=== PATIENT | female | born 1990 | race American Indian/Alaskan Native ===

== ENCOUNTER → 2021-05-01 | Outpatient (CLI) | payer OTHER ==
[~2021-05-01] MED LIST: METHACHOLINE KIT (J7674) INH ONE
--- NOTE | 2021-05-01 09:49 | PFTRPT ---
Height: 62.00 Inches Weight: 145.00 Lbs BSA: 1.67 Diagnosis: R06.02 DATE: 05/01/2021 ORDERED BY: Kallie Ring NP QUALITY: Study of excellent technical quality. PROCEDURE: Under protocol, methacholine was administered. At a dose of 25 mg or 188.875 CDUs, a 28% decline in the FEV1 was noted. PC of 11.24 is in the indeterminate range. Flow rates returned to better than baseline post bronchodilator administration. IMPRESSION: Indeterminate methacholine challenge. Please correlate clinically. MTDD
== END ==
LOC: M CARPUL 08:48
PROVIDERS: ATTEND Nurse Practitioner Adult Health
DX: R06.02 Shortness of breath (principal)

== ENCOUNTER 2022-03-08 10:07 | Day surgery (SDC) | payer OTHER ==
[~2022-03-08] VITALS: Ht 160 cm; Wt 69.9 kg
[~2022-03-08 10:07] MED LIST changes: +ADV250INH INH; +BIRTH CONTROL PO; +IBUP-1114 PO; -METHACHOLINE KIT (J7674) INH ONE; +PROAAER10 INH; +ceFAZolin SOD 2 GM in IV 1 EA IV ONE
[2022-03-08] MEDS ORDERED: propofoL 200 MG/20 ML VIAL As Ordered ONE (10:18)
[2022-03-08] MEDS ORDERED: MIDAZOLAM INJ 2MG/2ML VIAL (J2250 PER 1MG) As Ordered ONE (10:18)
[2022-03-08] MEDS ORDERED: dexameTHASONE 4 MG/ML 1ML VIAL (J1100 PER 1MG) As Ordered ONE ×2 (10:18→10:19)
[2022-03-08] MEDS ORDERED: fentaNYL 100 MCG/2 ML INJECTION As Ordered ONE ×2 (10:18→16:31)
[2022-03-08] MEDS ORDERED: ONDANSETRON 4MG 2ML VIAL As Ordered ONE (10:19)
[2022-03-08] MEDS ORDERED: ROPIvacaine 0.5% 30ML INJECTION (J2795 PER 1MG) As Ordered ONE (11:01)
[2022-03-08] MEDS ORDERED: EPINEPHrine 1MG/ML INJ 30ML MD-VIAL As Ordered ONE (11:01)
[2022-03-08] MEDS ORDERED: LR 1,000 ML IV SCH ×2 (11:55→17:10)
[2022-03-08] MEDS ORDERED: EPINEPHrine INJ 1 MG/ML 1ML AMP PN ONE (12:55)
[2022-03-08] MEDS ORDERED: ROPIvacaine 0.5% 30ML INJECTION (J2795 PER 1MG) PN ONE (12:55)
[2022-03-08] MEDS ORDERED: LIDOCAINE 1% SDV 5ML VIAL PN ONE (12:55)
[2022-03-08] MEDS: fentaNYL 100 MCG/2 ML INJECTION IV PRN ×2 (13:09→13:11)
[2022-03-08] MEDS: MIDAZOLAM INJ 2MG/2ML VIAL (J2250 PER 1MG) IV PRN (13:09)
[2022-03-08] MEDS ORDERED: LIDOCAINE 2% INJ 100 MG/5 ML SYRINGE As Ordered ONE (13:59)
[2022-03-08] MEDS ORDERED: TRANEXAMIC ACID 100 MG/ML 10ML VIAL As Ordered ONE (14:00)
[2022-03-08] MEDS ORDERED: VANCOMYCIN 1000MG/20ML VIAL As Ordered ONE (16:43)
[2022-03-08] MEDS ORDERED: ACETAMINOPHEN 1000MG 100ML IV BTL (OFIRMEV) (J0131 PER 10MG) As Ordered ONE (16:48)
[2022-03-08] MEDS ORDERED: oxyCODONE 5MG TAB PO PRN (17:10)
[2022-03-08] MEDS ORDERED: MORPHINE 2 MG/ML 1ML VIAL IV PRN (17:10)
[2022-03-08] MEDS ORDERED: fentaNYL 100 MCG/2 ML INJECTION IV PRN (17:10)
[2022-03-08] MEDS ORDERED: ONDANSETRON 4MG 2ML VIAL IV PRN (17:10)
[2022-03-08] MEDS ORDERED: diphenhydrAMINE 50MG/ML VIAL (J1200) As Ordered ONE (17:30)
[2022-03-08] MEDS ORDERED: diphenhydrAMINE 50MG/ML VIAL (J1200) IV ONE (17:35)
[2022-03-08 18:15] VITALS: BP 131/69
[2022-03-08] MEDS ORDERED: ESMOLOL INJ 100MG/10ML VIAL As Ordered ONE (18:36)
[2022-03-08] MEDS ORDERED: VECURONIUM BROMIDE 10MG VIAL As Ordered ONE (18:54)
== END 2022-03-08 18:34 | disposition home or self-care (01) ==
LOC: M SDC 10:07
PROVIDERS: ATTEND Orthopaedic Surgery
DX: M23.221 Derangement of posterior horn of medial meniscus due to old tear or injury, right knee (principal); M94.261 Chondromalacia, right knee; J45.909 Unspecified asthma, uncomplicated; Z79.51 Long term (current) use of inhaled steroids; Z79.899 Other long term (current) drug therapy; Z87.891 Personal history of nicotine dependence
CPT/HCPCS: 29868; 29881; 64447; 87428; C1713; C1762; J0131; J0171; J0690; J1100; J1200; J2250; J2405; J2795; J3010; J3370

== ENCOUNTER 2022-04-29 11:15 | Day surgery (SDC) | payer OTHER ==
[~2022-04-29] VITALS: Ht 160 cm; Wt 70.2 kg
[~2022-04-29 11:15] MED LIST changes: +NS 1,000 ML IV ONE; -ceFAZolin SOD 2 GM in IV 1 EA IV ONE
[2022-04-29] MEDS ORDERED: fentaNYL 100 MCG/2 ML INJECTION As Ordered ONE (13:12)
[2022-04-29] MEDS ORDERED: LIDOCAINE 2% 100MG/5ML SDV (FOR ANES.) As Ordered ONE (13:12)
[2022-04-29] MEDS ORDERED: propofoL 500 MG/50 ML VIAL As Ordered ONE (13:13)
[2022-04-29 13:59] VITALS: BP 112/69
== END 2022-04-29 14:12 | disposition home or self-care (01) ==
LOC: M OPP 11:15
PROVIDERS: ATTEND Internal Medicine Gastroenterology
DX: K58.1 Irritable bowel syndrome with constipation (principal); R12 Heartburn; G43.909 Migraine, unspecified, not intractable, without status migrainosus; J45.909 Unspecified asthma, uncomplicated; Z79.1 Long term (current) use of non-steroidal anti-inflammatories (NSAID); Z79.3 Long term (current) use of hormonal contraceptives; Z79.51 Long term (current) use of inhaled steroids; Z79.899 Other long term (current) drug therapy
CPT/HCPCS: 43235; 45378; J3010